=== PATIENT | male | born 1935 | race Two or more races ===

== ENCOUNTER 2020-08-23 21:50 | Inpatient (IN) | payer OTHER ==
[~2020-08-23] VITALS: Ht 177.8 cm; Wt 96.5 kg
[2020-08-23] MEDS ORDERED: NOREPINEPHRINE 8 MG/250ML KIT 250 ML IV ONE (22:16)
[2020-08-23] MEDS: NOREPINEPHRINE 8 MG/250ML KIT 250 ML IV SCH (22:29)
[2020-08-23 22:40] LABS: Basophils # (auto) 0.1 10 ^3/uL (0-0.2); Basophils % (auto) 0.6 % (0.0-2.0); Eosinophils # (auto) 0 10 ^3/uL (0-0.8); Eosinophils % (auto) 0.2 % (0.0-7.0); Hematocrit 28.1 % (41.0-53.0); Hemoglobin 9.2 g/dL (13.5-17.5); Lymphocytes # (auto) 1.8 10 ^3/uL (0.4-5.4); Lymphocytes % (auto) 13.4 % (10.0-50.0); Mean Corpuscular Hemoglobin 31.5 pg (28.0-32.0); Mean Corpuscular Hgb Conc. 32.9 g/dL (32.0-36.0); Mean Corpuscular Volume 95.8 fL (80.0-100.0); Monocytes # (auto) 0.6 10 ^3/uL (0-1.3); Monocytes % (auto) 4.9 % (0.0-12.0); Neutrophils # (auto) 10.7 10 ^3/uL (1.6-8.6); Neutrophils % (auto) 80.9 % (37.0-80.0); Red Blood Cells 2.93 10^6/uL (4.5-5.90); Red Cell Distribution Width 17.6 % (11.8-14.3); White Blood Cell 13.2 10^3/uL (4.4-10.8)
[2020-08-23 22:57] LABS: Albumin 2.1 g/dL (3.4-5.0); Anion Gap 16 (5-15); Blood Urea Nitrogen 66 mg/dL (7-18); Calcium 8.1 mg/dL (8.5-10.1); Carbon Dioxide 11 mmol/L (21-32); Chloride 115 mmol/L (98-107); Glucose 233 mg/dL (74-106); Magnesium 2.2 mg/dL (1.6-2.6); Potassium 4.6 mmol/L (3.5-5.1); Sodium 142 mmol/L (136-145)
[2020-08-23 23:01] LABS: Lactic Acid w/Reflex 8.3 mmol/L (0.4-2.0)
[2020-08-23 23:03] LABS: Alanine Aminotransferase 25 U/L (16-61); Alkaline Phosphatase 195 U/L (45-117); Aspartate Aminotransferase 28 U/L (15-37); BUN/Creatinine Ratio 29.9; Bilirubin, Total 0.4 mg/dL (0.2-1.0); GFR African American 37 mL/min; GFR Non-African American 30 mL/min; Total Protein 5.2 g/dL (6.4-8.2)
[2020-08-23 23:13] LABS: INR 3.49 (0.9-1.15); Partial Thromboplastin Time 66.7 sec (23.0-31.2)
[2020-08-24] MEDS ORDERED: PANTOPRAZOLE 40mg/50ML NS AE 50 ML IV ONE ×2 (00:36→03:31)
[2020-08-24] MEDS ORDERED: PANTOPRAZOLE 40 MG/10 ML VIAL INJ IV ONE (00:37)
[2020-08-24] MEDS ORDERED: SUCRALFATE 1 GM TAB PO ONE (02:45)
[2020-08-24] MEDS ORDERED: cefTRIAXone 1GM/50ML D5W 50 ML IV ONE (04:05)
[2020-08-24 05:37] LABS: Hematocrit 36.2 % (41.0-53.0); Hemoglobin 12.1 g/dL (13.5-17.5)
[2020-08-24 05:58] LABS: Hematocrit 36.7 % (41.0-53.0); Hemoglobin 12.3 g/dL (13.5-17.5)
[2020-08-24] MEDS ORDERED: MORPHINE SULF INJ 2 MG/ML SYRINGE 1ML IV PRN (07:00)
[2020-08-24] MEDS ORDERED: DEXTROSE (50%) 50ML SYRG IV PRN (07:00)
[2020-08-24] MEDS ORDERED: NITROGLYCERIN 0.4 MG SL TAB SL PRN (07:00)
[2020-08-24] MEDS ORDERED: ALBUMIN 5% 250 ML IV ONE (07:00)
[2020-08-24] MEDS ORDERED: ONDANSETRON HCL 4 MG/2 ML VIAL IV PRN (07:00)
[2020-08-24] MEDS: SODIUM CHLORIDE 0.9% 1,000 ML IV SCH ×2 (09:08→18:46)
[2020-08-24] MEDS: cefTRIAXone 1GM/50ML D5W 50 ML IV SCH (09:11)
[2020-08-24] MEDS: PANTOPRAZOLE 40mg/50ML NS AE 50 ML IV SCH ×4 (09:11→22:49)
[2020-08-24] MEDS: AZITHROMYCIN 500MG/ 250ML 250 ML IV SCH (10:44)
[2020-08-24 10:49] LABS: Urine Bacteria FEW /hpf (None Seen); Urine Blood 3+ /uL (Negative); Urine Hyaline Cast MANY /lpf (0 - 2); Urine Mucus FEW (None Seen); Urine Specific Gravity 1.018 (1.001-1.035); Urine WBC 12 /hpf (0 - 3)
[2020-08-24] MEDS: ACCU-CHEK COMFORT CURVE STRIP VI SCH ×2 (12:13→18:14)
[2020-08-24] MEDS: InsuLIN REG 1unit/0.01ml Soln (100units/ml) SC SCH ×2 (12:22→18:14)
[2020-08-24 12:49] VITALS: BP 108/56
[2020-08-24 13:12] VITALS: BP 100/52
[2020-08-24 13:30] VITALS: BP 97/57
[2020-08-24 15:00] VITALS: BP 96/51
[2020-08-24] MEDS: FUROSEMIDE 20 MG/2 ML VIAL IV SCH (17:53)
[2020-08-24] MEDS: NOREPINEPHRINE 8 MG/250ML KIT 250 ML IV SCH (22:41)
[2020-08-25] VITALS (75 sets, daily range): BP systolic 94–131; BP diastolic 36–71
[2020-08-25] MEDS: ACCU-CHEK COMFORT CURVE STRIP VI SCH ×4 (00:10→18:01)
[2020-08-25] MEDS: InsuLIN REG 1unit/0.01ml Soln (100units/ml) SC SCH ×4 (00:19→18:01)
[2020-08-25] MEDS: PANTOPRAZOLE 40mg/50ML NS AE 50 ML IV SCH ×5 (03:00→23:08)
[2020-08-25] MEDS: FUROSEMIDE 20 MG/2 ML VIAL IV SCH (06:00)
[2020-08-25] MEDS: SODIUM CHLORIDE 0.9% 1,000 ML IV SCH (06:32)
[2020-08-25 08:58] LABS: Basophils # (auto) 0 10 ^3/uL (0-0.2); Basophils % (auto) 0.3 % (0.0-2.0); Eosinophils # (auto) 0 10 ^3/uL (0-0.8); Hematocrit 36.2 % (41.0-53.0); Hemoglobin 12.5 g/dL (13.5-17.5); Lymphocytes # (auto) 1.2 10 ^3/uL (0.4-5.4); Lymphocytes % (auto) 7.6 % (10.0-50.0); Mean Corpuscular Hemoglobin 30.6 pg (28.0-32.0); Mean Corpuscular Hgb Conc. 34.4 g/dL (32.0-36.0); Mean Corpuscular Volume 88.9 fL (80.0-100.0); Monocytes # (auto) 1.3 10 ^3/uL (0-1.3); Monocytes % (auto) 8.3 % (0.0-12.0); Neutrophils # (auto) 13.2 10 ^3/uL (1.6-8.6); Neutrophils % (auto) 83.8 % (37.0-80.0); Red Blood Cells 4.07 10^6/uL (4.5-5.90); White Blood Cell 15.8 10^3/uL (4.4-10.8)
[2020-08-25 09:14] LABS: Albumin 2.6 g/dL (3.4-5.0); Calcium 8.9 mg/dL (8.5-10.1); Potassium 3.5 mmol/L (3.5-5.1)
[2020-08-25] MEDS ORDERED: PHYTONADIONE (VIT K)10 MG/ML 1ML VIAL SUBCUT ONE (09:15)
[2020-08-25 09:17] LABS: BUN/Creatinine Ratio 40.9; Bilirubin, Total 0.5 mg/dL (0.2-1.0); Total Protein 6.1 g/dL (6.4-8.2)
[2020-08-25] MEDS: cefTRIAXone 1GM/50ML D5W 50 ML IV SCH (10:06)
[2020-08-25] MEDS: AZITHROMYCIN 500MG/ 250ML 250 ML IV SCH (10:48)
[2020-08-25] MEDS ORDERED: CLINIMIX PER PHARMACY 0 ML IV SCH (13:15)
[2020-08-25] MEDS: MORPHINE SULF INJ 2 MG/ML SYRINGE 1ML IV PRN (14:01)
[2020-08-25 14:03] LABS: Magnesium 2.3 mg/dL (1.6-2.6); Phosphorus 3.7 mg/dL (2.5-4.90)
[2020-08-25 14:07] LABS: Pre Albumin 7.5 mg/dL (20.0-40.0)
[2020-08-25 14:26] LABS: INR 1.99 (0.9-1.15); Partial Thromboplastin Time 69.5 sec (23.0-31.2)
[2020-08-25] MEDS: ACETYLCYSTEINE 10 %(100MG/ML) SOL 4ML NEB PRN ×2 (15:22→18:21)
[2020-08-25] MEDS: ALBUTEROL SULF 2.5 MG/0.5ML(0.5%) NEB SOLN NEB PRN ×2 (15:22→18:20)
[2020-08-25] MEDS ORDERED: DEXTROSE (50%) 50ML SYRG IV SCH (18:00)
[2020-08-25] MEDS ORDERED: AMINO ACID INFUSION IN D10W 1,000 ML IV NR (20:00)
[2020-08-25] MEDS: NOREPINEPHRINE 8 MG/250ML KIT 250 ML IV SCH (22:15)
[2020-08-25] MEDS ORDERED: ATEN-60 PO (23:07)
[2020-08-25] MEDS ORDERED: DABI75CA5 PO (23:07)
[2020-08-25] MEDS ORDERED: LISI2.5T47 PO (23:07)
[2020-08-26] VITALS (93 sets, daily range): BP systolic 84–123; BP diastolic 40–61
[2020-08-26] MEDS: ACCU-CHEK COMFORT CURVE STRIP VI SCH ×4 (00:08→18:07)
[2020-08-26] MEDS: InsuLIN REG 1unit/0.01ml Soln (100units/ml) SC SCH ×4 (00:08→18:07)
[2020-08-26] MEDS: PANTOPRAZOLE 40mg/50ML NS AE 50 ML IV SCH ×4 (03:40→19:49)
[2020-08-26 04:30] LABS: Basophils # (auto) 0 10 ^3/uL (0-0.2); Basophils % (auto) 0.3 % (0.0-2.0); Eosinophils # (auto) 0 10 ^3/uL (0-0.8); Eosinophils % (auto) 0.1 % (0.0-7.0); Hematocrit 29.7 % (41.0-53.0); Hemoglobin 10.3 g/dL (13.5-17.5); Lymphocytes # (auto) 1.1 10 ^3/uL (0.4-5.4); Lymphocytes % (auto) 10.3 % (10.0-50.0); Mean Corpuscular Hemoglobin 30.7 pg (28.0-32.0); Mean Corpuscular Hgb Conc. 34.6 g/dL (32.0-36.0); Mean Corpuscular Volume 88.7 fL (80.0-100.0); Monocytes # (auto) 0.9 10 ^3/uL (0-1.3); Neutrophils # (auto) 8.7 10 ^3/uL (1.6-8.6); Neutrophils % (auto) 81.3 % (37.0-80.0); Red Blood Cells 3.35 10^6/uL (4.5-5.90); Red Cell Distribution Width 17.7 % (11.8-14.3); White Blood Cell 10.7 10^3/uL (4.4-10.8)
[2020-08-26 04:48] LABS: Albumin 2.2 g/dL (3.4-5.0); Calcium 8.3 mg/dL (8.5-10.1)
[2020-08-26 04:51] LABS: BUN/Creatinine Ratio 42.6; Bilirubin, Total 0.5 mg/dL (0.2-1.0); Phosphorus 2.3 mg/dL (2.5-4.90); Total Protein 5.3 g/dL (6.4-8.2)
[2020-08-26 04:53] LABS: INR 1.72 (0.9-1.15); Partial Thromboplastin Time 61.9 sec (23.0-31.2)
[2020-08-26] MEDS: cefTRIAXone 1GM/50ML D5W 50 ML IV SCH (08:39)
[2020-08-26] MEDS ORDERED: POTASSIUM PHOSPHATE 44 MEQ in D5W 5% 250 ML IV ONE (09:00)
[2020-08-26] MEDS: AZITHROMYCIN 500MG/ 250ML 250 ML IV SCH (09:48)
[2020-08-26] MEDS ORDERED: PHYTONADIONE (VIT K)10 MG/ML 1ML VIAL SUBCUT ONE (10:00)
[2020-08-26] MEDS: ACETYLCYSTEINE 10 %(100MG/ML) SOL 4ML NEB PRN (11:17)
[2020-08-26] MEDS: ALBUTEROL SULF 2.5 MG/0.5ML(0.5%) NEB SOLN NEB PRN (11:17)
[2020-08-26] MEDS: MORPHINE SULF INJ 2 MG/ML SYRINGE 1ML IV PRN ×2 (14:18→20:29)
[2020-08-26] MEDS ORDERED: AMINO ACID INFUSION IN D10W 1,000 ML IV NR (20:00)
[2020-08-27] VITALS (96 sets, daily range): BP systolic 79–129; BP diastolic 34–66
[2020-08-27] MEDS: InsuLIN REG 1unit/0.01ml Soln (100units/ml) SC SCH ×5 (00:01→23:32)
[2020-08-27 04:06] LABS: Basophils # (auto) 0 10 ^3/uL (0-0.2); Basophils % (auto) 0.3 % (0.0-2.0); Eosinophils # (auto) 0 10 ^3/uL (0-0.8); Eosinophils % (auto) 0.2 % (0.0-7.0); Hematocrit 29.2 % (41.0-53.0); Hemoglobin 10.3 g/dL (13.5-17.5); Lymphocytes # (auto) 1.3 10 ^3/uL (0.4-5.4); Lymphocytes % (auto) 11.8 % (10.0-50.0); Mean Corpuscular Hemoglobin 31.3 pg (28.0-32.0); Mean Corpuscular Hgb Conc. 35.4 g/dL (32.0-36.0); Mean Corpuscular Volume 88.3 fL (80.0-100.0); Monocytes # (auto) 0.8 10 ^3/uL (0-1.3); Monocytes % (auto) 7.7 % (0.0-12.0); Neutrophils # (auto) 8.7 10 ^3/uL (1.6-8.6); Nucleated Red Blood Cells % 0.1 %; Red Blood Cells 3.31 10^6/uL (4.5-5.90); Red Cell Distribution Width 17.8 % (11.8-14.3); White Blood Cell 10.8 10^3/uL (4.4-10.8)
[2020-08-27 04:22] LABS: Potassium 3.1 mmol/L (3.5-5.1)
[2020-08-27 04:25] LABS: INR 1.46 (0.9-1.15); Partial Thromboplastin Time 44.2 sec (23.0-31.2)
[2020-08-27 04:40] LABS: BUN/Creatinine Ratio 43.8; Bilirubin, Total 2.1 mg/dL (0.2-1.0); Calcium 8.2 mg/dL (8.5-10.1); Magnesium 1.9 mg/dL (1.6-2.6); Phosphorus 2.1 mg/dL (2.5-4.90); Total Protein 5.2 g/dL (6.4-8.2)
[2020-08-27] MEDS: NOREPINEPHRINE 8 MG/250ML KIT 250 ML IV SCH ×2 (06:12→22:46)
[2020-08-27] MEDS: PANTOPRAZOLE 40mg/50ML NS AE 50 ML IV SCH ×5 (06:12→20:05)
[2020-08-27] MEDS: ACCU-CHEK COMFORT CURVE STRIP VI SCH ×5 (06:13→23:26)
[2020-08-27] MEDS: ACETYLCYSTEINE 10 %(100MG/ML) SOL 4ML NEB PRN (06:35)
[2020-08-27] MEDS: ALBUTEROL SULF 2.5 MG/0.5ML(0.5%) NEB SOLN NEB PRN (06:35)
[2020-08-27] MEDS: cefTRIAXone 1GM/50ML D5W 50 ML IV SCH (08:41)
[2020-08-27] MEDS: POTASSIUM CHL 20MEQ/100ML 100 ML IV SCH ×2 (09:18→10:51)
[2020-08-27] MEDS: AZITHROMYCIN 500MG/ 250ML 250 ML IV SCH (10:30)
[2020-08-27] MEDS ORDERED: LIDOCAINE VISCOUS 2% 15ML UD ONE (10:30)
[2020-08-27] MEDS ORDERED: SODIUM CHLORIDE LOCK 10 ML ONE (10:30)
[2020-08-27] MEDS ORDERED: MIDAZOLAM HCL 5 MG/ML-1ML VIAL ONE (10:30)
[2020-08-27] MEDS ORDERED: fentaNYL CITRATE 100 MCG/2 ML VL ONE (10:31)
[2020-08-27] MEDS ORDERED: diphenhdrAMINE HCL 50 MG/1 ML VL ONE (10:31)
[2020-08-27] MEDS ORDERED: POTASSIUM PHOSPHATE 22 MEQ in SODIUM CHL 0.9% 100 ML IV ONE (10:45)
[2020-08-27] MEDS ORDERED: AMINO ACID INFUSION IN D10W 1,000 ML IV NR (20:00)
[2020-08-28] VITALS (97 sets, daily range): BP systolic 87–128; BP diastolic 42–68
[2020-08-28] MEDS: PANTOPRAZOLE 40mg/50ML NS AE 50 ML IV SCH ×5 (01:36→23:04)
[2020-08-28] MEDS ORDERED: PROPOFOL 0 ML IV ONE (02:34)
[2020-08-28 04:07] LABS: Basophils # (auto) 0 10 ^3/uL (0-0.2); Basophils % (auto) 0.4 % (0.0-2.0); Eosinophils # (auto) 0.1 10 ^3/uL (0-0.8); Eosinophils % (auto) 0.9 % (0.0-7.0); Hematocrit 27.6 % (41.0-53.0); Hemoglobin 9.5 g/dL (13.5-17.5); Lymphocytes # (auto) 1.3 10 ^3/uL (0.4-5.4); Lymphocytes % (auto) 13.9 % (10.0-50.0); Mean Corpuscular Hemoglobin 30.6 pg (28.0-32.0); Mean Corpuscular Hgb Conc. 34.6 g/dL (32.0-36.0); Mean Corpuscular Volume 88.4 fL (80.0-100.0); Monocytes # (auto) 0.7 10 ^3/uL (0-1.3); Monocytes % (auto) 7.3 % (0.0-12.0); Neutrophils # (auto) 7.3 10 ^3/uL (1.6-8.6); Neutrophils % (auto) 77.5 % (37.0-80.0); Red Blood Cells 3.12 10^6/uL (4.5-5.90); White Blood Cell 9.5 10^3/uL (4.4-10.8)
[2020-08-28 04:15] LABS: Calcium 8.2 mg/dL (8.5-10.1); Potassium 3.5 mmol/L (3.5-5.1)
[2020-08-28 04:26] LABS: INR 1.34 (0.9-1.15); Partial Thromboplastin Time 40.8 sec (23.0-31.2)
[2020-08-28 04:31] LABS: BUN/Creatinine Ratio 40.4; Bilirubin, Total 2.1 mg/dL (0.2-1.0); Phosphorus 1.6 mg/dL (2.5-4.90); Total Protein 5.3 g/dL (6.4-8.2)
[2020-08-28] MEDS: InsuLIN REG 1unit/0.01ml Soln (100units/ml) SC SCH ×4 (06:00→23:30)
[2020-08-28] MEDS: ACCU-CHEK COMFORT CURVE STRIP VI SCH ×4 (06:00→23:23)
[2020-08-28] MEDS ORDERED: POTASSIUM PHOSPHATE 44 MEQ in D5W 5% 250 ML IV ONE (09:30)
[2020-08-28] MEDS: cefTRIAXone 1GM/50ML D5W 50 ML IV SCH (09:34)
[2020-08-28] MEDS: AZITHROMYCIN 500MG/ 250ML 250 ML IV SCH (11:15)
[2020-08-28] MEDS: NOREPINEPHRINE 8 MG/250ML KIT 250 ML IV SCH (17:43)
[2020-08-28] MEDS ORDERED: AMINO ACID INFUSION IN D10W 1,000 ML IV NR (20:00)
[2020-08-29] VITALS (49 sets, daily range): BP systolic 87–122; BP diastolic 43–64
[2020-08-29 04:35] LABS: Basophils # (auto) 0 10 ^3/uL (0-0.2); Basophils % (auto) 0.3 % (0.0-2.0); Eosinophils # (auto) 0.2 10 ^3/uL (0-0.8); Eosinophils % (auto) 2.9 % (0.0-7.0); Hemoglobin 8.6 g/dL (13.5-17.5); Lymphocytes # (auto) 1.1 10 ^3/uL (0.4-5.4); Lymphocytes % (auto) 15.2 % (10.0-50.0); Mean Corpuscular Hemoglobin 30.6 pg (28.0-32.0); Mean Corpuscular Hgb Conc. 34.3 g/dL (32.0-36.0); Mean Corpuscular Volume 89.2 fL (80.0-100.0); Monocytes # (auto) 0.5 10 ^3/uL (0-1.3); Monocytes % (auto) 7.8 % (0.0-12.0); Neutrophils # (auto) 5.1 10 ^3/uL (1.6-8.6); Neutrophils % (auto) 73.8 % (37.0-80.0); Red Cell Distribution Width 17.8 % (11.8-14.3); White Blood Cell 6.9 10^3/uL (4.4-10.8)
[2020-08-29 04:58] LABS: Potassium 3.7 mmol/L (3.5-5.1)
[2020-08-29 05:18] LABS: Albumin 1.8 g/dL (3.4-5.0); BUN/Creatinine Ratio 43.5; Bilirubin, Total 0.8 mg/dL (0.2-1.0); Calcium 7.5 mg/dL (8.5-10.1); Magnesium 1.8 mg/dL (1.6-2.6); Total Protein 4.8 g/dL (6.4-8.2)
[2020-08-29] MEDS: PANTOPRAZOLE 40mg/50ML NS AE 50 ML IV SCH ×5 (06:24→21:50)
[2020-08-29] MEDS: ACCU-CHEK COMFORT CURVE STRIP VI SCH ×4 (06:24→23:44)
[2020-08-29] MEDS: InsuLIN REG 1unit/0.01ml Soln (100units/ml) SC SCH ×4 (06:29→23:45)
[2020-08-29] MEDS: cefTRIAXone 1GM/50ML D5W 50 ML IV SCH (08:50)
[2020-08-29] MEDS: AZITHROMYCIN 500MG/ 250ML 250 ML IV SCH (10:09)
[2020-08-29] MEDS ORDERED: POTASSIUM PHOSPHATE 44 MEQ in D5W 5% 250 ML IV ONE (13:00)
[2020-08-29] MEDS ORDERED: AMINO ACID INFUSION IN D10W 1,000 ML IV NR (20:00)
[2020-08-30] MEDS: PANTOPRAZOLE 40mg/50ML NS AE 50 ML IV SCH ×5 (03:08→23:35)
[2020-08-30 05:15] VITALS: BP 113/58
[2020-08-30] MEDS: ACCU-CHEK COMFORT CURVE STRIP VI SCH ×4 (06:00→23:29)
[2020-08-30] MEDS: InsuLIN REG 1unit/0.01ml Soln (100units/ml) SC SCH ×4 (06:10→23:30)
[2020-08-30 06:15] LABS: Basophils # (auto) 0 10 ^3/uL (0-0.2); Basophils % (auto) 0.2 % (0.0-2.0); Eosinophils # (auto) 0.1 10 ^3/uL (0-0.8); Eosinophils % (auto) 1.7 % (0.0-7.0); Hematocrit 26.2 % (41.0-53.0); Hemoglobin 9.1 g/dL (13.5-17.5); Lymphocytes # (auto) 1.1 10 ^3/uL (0.4-5.4); Lymphocytes % (auto) 14.2 % (10.0-50.0); Mean Corpuscular Hemoglobin 30.9 pg (28.0-32.0); Mean Corpuscular Hgb Conc. 34.6 g/dL (32.0-36.0); Mean Corpuscular Volume 89.4 fL (80.0-100.0); Monocytes # (auto) 0.6 10 ^3/uL (0-1.3); Monocytes % (auto) 7.3 % (0.0-12.0); Neutrophils # (auto) 6.1 10 ^3/uL (1.6-8.6); Neutrophils % (auto) 76.6 % (37.0-80.0); Red Blood Cells 2.93 10^6/uL (4.5-5.90); Red Cell Distribution Width 17.6 % (11.8-14.3)
[2020-08-30] MEDS ORDERED: ALPRAZolam 0.25 MG TAB PO PRN (06:15)
[2020-08-30 06:39] LABS: Calcium 7.7 mg/dL (8.5-10.1); Magnesium 1.6 mg/dL (1.6-2.6); Potassium 4.3 mmol/L (3.5-5.1)
[2020-08-30 06:57] LABS: BUN/Creatinine Ratio 36.5; Bilirubin, Total 0.7 mg/dL (0.2-1.0); Phosphorus 2.3 mg/dL (2.5-4.90); Total Protein 5.2 g/dL (6.4-8.2)
[2020-08-30 09:00] VITALS: BP 107/61
[2020-08-30] MEDS: cefTRIAXone 1GM/50ML D5W 50 ML IV SCH (09:37)
[2020-08-30] MEDS ORDERED: SODIUM PHOSPHATES 24 MEQ in SODIUM CHL 0.9% 100 ML IV ONE (10:00)
[2020-08-30] MEDS: AZITHROMYCIN 500MG/ 250ML 250 ML IV SCH (10:38)
[2020-08-30 13:00] VITALS: BP 107/56
[2020-08-30 17:00] VITALS: BP 112/52
[2020-08-30] MEDS ORDERED: AMINO ACID INFUSION IN D10W 1,000 ML IV NR (20:00)
[2020-08-30 22:00] VITALS: BP 130/58
[2020-08-31] MEDS: PANTOPRAZOLE 40mg/50ML NS AE 50 ML IV SCH ×5 (03:55→23:57)
[2020-08-31 05:00] VITALS: BP 126/53
[2020-08-31] MEDS: ACCU-CHEK COMFORT CURVE STRIP VI SCH ×3 (05:34→18:16)
[2020-08-31] MEDS: InsuLIN REG 1unit/0.01ml Soln (100units/ml) SC SCH ×3 (06:03→18:17)
[2020-08-31 06:25] LABS: Albumin 1.9 g/dL (3.4-5.0); Calcium 7.9 mg/dL (8.5-10.1); Magnesium 1.7 mg/dL (1.6-2.6); Potassium 4.1 mmol/L (3.5-5.1)
[2020-08-31 06:29] LABS: BUN/Creatinine Ratio 33.9; Bilirubin, Total 0.5 mg/dL (0.2-1.0); Phosphorus 2.5 mg/dL (2.5-4.90)
[2020-08-31 09:00] VITALS: BP 122/67
[2020-08-31 09:09] LABS: Basophils # (auto) 0.1 10 ^3/uL (0-0.2); Basophils % (auto) 0.7 % (0.0-2.0); Eosinophils # (auto) 0.1 10 ^3/uL (0-0.8); Eosinophils % (auto) 1.6 % (0.0-7.0); Hematocrit 27.3 % (41.0-53.0); Hemoglobin 9.2 g/dL (13.5-17.5); Lymphocytes # (auto) 0.8 10 ^3/uL (0.4-5.4); Lymphocytes % (auto) 10.7 % (10.0-50.0); Mean Corpuscular Hemoglobin 30.5 pg (28.0-32.0); Mean Corpuscular Hgb Conc. 33.6 g/dL (32.0-36.0); Mean Corpuscular Volume 90.6 fL (80.0-100.0); Monocytes # (auto) 0.5 10 ^3/uL (0-1.3); Monocytes % (auto) 6.9 % (0.0-12.0); Neutrophils # (auto) 6.1 10 ^3/uL (1.6-8.6); Neutrophils % (auto) 80.1 % (37.0-80.0); Red Blood Cells 3.01 10^6/uL (4.5-5.90); White Blood Cell 7.6 10^3/uL (4.4-10.8)
[2020-08-31 09:25] LABS: INR 1.16 (0.9-1.15)
[2020-08-31 09:27] LABS: BUN/Creatinine Ratio 32.4; Calcium 8.1 mg/dL (8.5-10.1); Potassium 3.7 mmol/L (3.5-5.1)
[2020-08-31] MEDS: cefTRIAXone 1GM/50ML D5W 50 ML IV SCH (09:36)
[2020-08-31] MEDS: AZITHROMYCIN 500MG/ 250ML 250 ML IV SCH (09:37)
[2020-08-31 10:33] VITALS: BP 122/67
[2020-08-31] MEDS ORDERED: MAGNESIUM SULFATE 1GM/100ML 100 ML IV ONE (11:45)
[2020-08-31 13:00] VITALS: BP 121/56
[2020-08-31 17:00] VITALS: BP 103/49
[2020-08-31] MEDS ORDERED: AMINO ACID INFUSION IN D10W 1,000 ML IV NR (20:00)
[2020-08-31 22:00] VITALS: BP 135/69
[2020-09-01] VITALS (12 sets, daily range): BP systolic 109–154; BP diastolic 52–87
[2020-09-01] MEDS: InsuLIN REG 1unit/0.01ml Soln (100units/ml) SC SCH ×4 (00:45→17:37)
[2020-09-01] MEDS: ACCU-CHEK COMFORT CURVE STRIP VI SCH ×4 (00:45→17:36)
[2020-09-01 06:13] LABS: Magnesium 1.8 mg/dL (1.6-2.6); Potassium 3.8 mmol/L (3.5-5.1)
[2020-09-01 06:18] LABS: BUN/Creatinine Ratio 32.8; Bilirubin, Total 0.6 mg/dL (0.2-1.0); Phosphorus 1.9 mg/dL (2.5-4.90)
[2020-09-01] MEDS: PANTOPRAZOLE 40mg/50ML NS AE 50 ML IV SCH ×4 (06:22→20:14)
[2020-09-01] MEDS: cefTRIAXone 1GM/50ML D5W 50 ML IV SCH (08:31)
[2020-09-01] MEDS ORDERED: LIDOCAINE 2%HCL (LOCAL ANESTH.) INJ 20ML MDV ONE (08:54)
[2020-09-01] MEDS: AZITHROMYCIN 500MG/ 250ML 250 ML IV SCH (10:26)
[2020-09-01] MEDS: MORPHINE SULF INJ 2 MG/ML SYRINGE 1ML IV PRN ×2 (10:56→21:49)
[2020-09-01] MEDS ORDERED: fentaNYL CITRATE 100 MCG/2 ML VL ONE (11:36)
[2020-09-01] MEDS ORDERED: MIDAZOLAM HCL 1MG/1ML-2 ML VIAL ONE (11:36)
[2020-09-01] MEDS ORDERED: POTASSIUM PHOSPHATE 44 MEQ in D5W 5% 250 ML IV ONE (12:00)
[2020-09-01] MEDS ORDERED: AMINO ACID INFUSION IN D10W 1,000 ML IV NR (20:00)
[2020-09-02] MEDS: ACCU-CHEK COMFORT CURVE STRIP VI SCH ×4 (00:32→17:35)
[2020-09-02] MEDS: InsuLIN REG 1unit/0.01ml Soln (100units/ml) SC SCH ×4 (00:34→17:37)
[2020-09-02] MEDS: PANTOPRAZOLE 40mg/50ML NS AE 50 ML IV SCH ×5 (00:47→20:32)
[2020-09-02 05:00] VITALS: BP 116/62
[2020-09-02 05:41] LABS: Albumin 1.9 g/dL (3.4-5.0); Calcium 7.9 mg/dL (8.5-10.1); Magnesium 1.8 mg/dL (1.6-2.6)
[2020-09-02 05:47] LABS: BUN/Creatinine Ratio 29.9; Bilirubin, Total 0.4 mg/dL (0.2-1.0); Phosphorus 2.9 mg/dL (2.5-4.90); Pre Albumin 7.5 mg/dL (20.0-40.0)
[2020-09-02 09:00] VITALS: BP 123/69
[2020-09-02 12:19] LABS: INR 1.18 (0.9-1.15); Partial Thromboplastin Time 33.8 sec (23.0-31.2)
[2020-09-02 13:00] VITALS: BP 106/57
[2020-09-02 17:00] VITALS: BP 115/68
[2020-09-02] MEDS ORDERED: AMINO ACID INFUSION IN D10W 1,000 ML IV NR (20:00)
[2020-09-02] MEDS: ALPRAZolam 0.5 MG TAB PO SCH (20:32)
[2020-09-02 22:00] VITALS: BP 130/66
[2020-09-03] VITALS (21 sets, daily range): BP systolic 101–132; BP diastolic 42–82
[2020-09-03] MEDS: ACCU-CHEK COMFORT CURVE STRIP VI SCH ×4 (00:05→18:15)
[2020-09-03] MEDS: InsuLIN REG 1unit/0.01ml Soln (100units/ml) SC SCH ×4 (00:06→18:16)
[2020-09-03] MEDS: PANTOPRAZOLE 40mg/50ML NS AE 50 ML IV SCH ×5 (02:43→21:42)
[2020-09-03] MEDS: ALBUTEROL SULF 2.5 MG/0.5ML(0.5%) NEB SOLN NEB PRN (05:44)
[2020-09-03] MEDS: ACETYLCYSTEINE 10 %(100MG/ML) SOL 4ML NEB PRN (05:48)
[2020-09-03 06:45] LABS: Albumin 1.9 g/dL (3.4-5.0); Bilirubin, Total 0.5 mg/dL (0.2-1.0); Calcium 7.8 mg/dL (8.5-10.1); Magnesium 1.9 mg/dL (1.6-2.6); Total Protein 5.1 g/dL (6.4-8.2)
[2020-09-03] MEDS: ALPRAZolam 0.5 MG TAB PO SCH ×2 (09:44→21:41)
[2020-09-03] MEDS ORDERED: SODIUM PHOSPHATES 40 MEQ in D5W 5% 250 ML IV ONE (12:00)
[2020-09-03] MEDS: AMINO ACID INFUSION IN D10W 1,000 ML IV NR (19:46)
[2020-09-04] MEDS: ACCU-CHEK COMFORT CURVE STRIP VI SCH ×4 (00:06→18:25)
[2020-09-04] MEDS: InsuLIN REG 1unit/0.01ml Soln (100units/ml) SC SCH ×4 (00:08→18:26)
[2020-09-04] MEDS: PANTOPRAZOLE 40mg/50ML NS AE 50 ML IV SCH ×5 (02:37→23:23)
[2020-09-04 05:00] VITALS: BP_SYST 108; BP_SYST 96; BP_DIAS 49; BP_DIAS 61
[2020-09-04 07:04] LABS: Albumin 1.7 g/dL (3.4-5.0); Calcium 7.6 mg/dL (8.5-10.1); Magnesium 1.7 mg/dL (1.6-2.6); Potassium 3.6 mmol/L (3.5-5.1)
[2020-09-04 07:08] LABS: BUN/Creatinine Ratio 31.5; Bilirubin, Total 0.4 mg/dL (0.2-1.0); Phosphorus 2.5 mg/dL (2.5-4.90); Total Protein 4.5 g/dL (6.4-8.2)
[2020-09-04 09:00] VITALS: BP_SYST 104; BP_SYST 96; BP_DIAS 49; BP_DIAS 52
[2020-09-04] MEDS: ALPRAZolam 0.5 MG TAB PO SCH ×2 (09:40→22:27)
[2020-09-04] MEDS ORDERED: MAGNESIUM SULFATE 1GM/100ML 100 ML IV ONE (10:00)
[2020-09-04] MEDS ORDERED: POTASSIUM PHOSP 22MEQ(15MMOLE) in NS 100 ML IV ONE (11:00)
[2020-09-04 13:00] VITALS: BP 103/56
[2020-09-04] MEDS ORDERED: METOPROLOL TARTRATE 1MG/1ML-5ML VIAL IV ONE (13:45)
[2020-09-04 17:00] VITALS: BP 92/46
[2020-09-04] MEDS: AMINO ACID INFUSION IN D10W 1,000 ML IV NR (19:49)
[2020-09-04] MEDS ORDERED: AMINO ACID INFUSION IN D10W 1,000 ML IV NR (20:00)
[2020-09-04 22:01] VITALS: BP 109/49
[2020-09-05] MEDS: PANTOPRAZOLE 40mg/50ML NS AE 50 ML IV SCH ×4 (04:02→19:03)
[2020-09-05 05:50] VITALS: BP 104/68
[2020-09-05 06:20] LABS: Basophils # (auto) 0 10 ^3/uL (0-0.2); Basophils % (auto) 0.5 % (0.0-2.0); Eosinophils # (auto) 0.1 10 ^3/uL (0-0.8); Eosinophils % (auto) 1.7 % (0.0-7.0); Hematocrit 24.8 % (41.0-53.0); Hemoglobin 8.7 g/dL (13.5-17.5); Lymphocytes % (auto) 11.3 % (10.0-50.0); Mean Corpuscular Hemoglobin 32.4 pg (28.0-32.0); Mean Corpuscular Hgb Conc. 35.1 g/dL (32.0-36.0); Mean Corpuscular Volume 92.5 fL (80.0-100.0); Monocytes # (auto) 0.7 10 ^3/uL (0-1.3); Neutrophils # (auto) 6.8 10 ^3/uL (1.6-8.6); Neutrophils % (auto) 78.5 % (37.0-80.0); Red Blood Cells 2.68 10^6/uL (4.5-5.90); Red Cell Distribution Width 17.9 % (11.8-14.3); White Blood Cell 8.7 10^3/uL (4.4-10.8)
[2020-09-05] MEDS: ACCU-CHEK COMFORT CURVE STRIP VI SCH ×4 (06:27→18:34)
[2020-09-05] MEDS: InsuLIN REG 1unit/0.01ml Soln (100units/ml) SC SCH ×4 (06:29→18:40)
[2020-09-05 06:47] LABS: Potassium 4.1 mmol/L (3.5-5.1)
[2020-09-05 06:56] LABS: Albumin 1.6 g/dL (3.4-5.0); BUN/Creatinine Ratio 29.5; Bilirubin, Total 0.4 mg/dL (0.2-1.0); Calcium 7.7 mg/dL (8.5-10.1); Phosphorus 2.2 mg/dL (2.5-4.90); Total Protein 4.7 g/dL (6.4-8.2)
[2020-09-05 08:00] VITALS: BP 93/43
[2020-09-05] MEDS: Glucerna Carbsteady SHAKE Vanilla 8oz PO SCH ×3 (08:58→18:33)
[2020-09-05 09:00] VITALS: BP 93/43
[2020-09-05] MEDS ORDERED: SODIUM PHOSP 40 MEQ in D5W 5% 250 ML IV ONE (09:30)
[2020-09-05] MEDS: METOPROLOL TARTRATE 25 MG TAB PO SCH ×2 (10:00→22:27)
[2020-09-05] MEDS: ALPRAZolam 0.5 MG TAB PO SCH ×2 (10:52→21:21)
[2020-09-05 13:00] VITALS: BP 111/58
[2020-09-05 17:00] VITALS: BP 103/50
[2020-09-05] MEDS ORDERED: AMINO ACID INFUSION IN D10W 1,000 ML IV NR (20:00)
[2020-09-05 22:00] VITALS: BP 109/54
[2020-09-06] MEDS ORDERED: PANTOPRAZOLE 40mg/50ML NS AE 100 ML IV ONE (00:22)
[2020-09-06] MEDS: PANTOPRAZOLE 40mg/50ML NS AE 50 ML IV SCH ×5 (00:45→20:47)
[2020-09-06] MEDS: ACCU-CHEK COMFORT CURVE STRIP VI SCH ×5 (00:46→23:16)
[2020-09-06] MEDS: InsuLIN REG 1unit/0.01ml Soln (100units/ml) SC SCH ×4 (00:46→17:26)
[2020-09-06 03:48] VITALS: BP 103/55
[2020-09-06 05:00] VITALS: BP 102/55
[2020-09-06 05:35] LABS: Potassium 3.6 mmol/L (3.5-5.1)
[2020-09-06 05:45] LABS: Albumin 1.6 g/dL (3.4-5.0); Bilirubin, Total 0.8 mg/dL (0.2-1.0); Calcium 7.5 mg/dL (8.5-10.1); Phosphorus 2.8 mg/dL (2.5-4.90); Total Protein 4.8 g/dL (6.4-8.2)
[2020-09-06] MEDS: Glucerna Carbsteady SHAKE Vanilla 8oz PO SCH ×3 (07:54→17:30)
[2020-09-06 09:00] VITALS: BP 94/49
[2020-09-06] MEDS: ALPRAZolam 0.5 MG TAB PO SCH ×2 (09:30→23:13)
[2020-09-06] MEDS: METOPROLOL TARTRATE 25 MG TAB PO SCH ×2 (09:30→23:10)
[2020-09-06 13:00] VITALS: BP 103/54
[2020-09-06 16:56] VITALS: BP 94/59
[2020-09-06] MEDS ORDERED: METOPROLOL TARTRATE 1MG/1ML-5ML VIAL IV ONE (18:15)
[2020-09-06] MEDS ORDERED: AMINO ACID INFUSION IN D10W 1,000 ML IV NR (20:00)
[2020-09-06 23:42] VITALS: BP 93/59
[2020-09-07] MEDS: PANTOPRAZOLE 40mg/50ML NS AE 50 ML IV SCH ×5 (02:00→22:38)
[2020-09-07 05:34] VITALS: BP 93/47
[2020-09-07] MEDS: ACCU-CHEK COMFORT CURVE STRIP VI SCH ×4 (06:40→23:00)
[2020-09-07] MEDS: InsuLIN REG 1unit/0.01ml Soln (100units/ml) SC SCH ×5 (07:02→23:02)
[2020-09-07 07:32] LABS: Potassium 3.9 mmol/L (3.5-5.1)
[2020-09-07 07:39] LABS: Albumin 1.7 g/dL (3.4-5.0); BUN/Creatinine Ratio 29.5; Bilirubin, Total 0.5 mg/dL (0.2-1.0); Calcium 7.8 mg/dL (8.5-10.1); Phosphorus 2.2 mg/dL (2.5-4.90); Total Protein 4.9 g/dL (6.4-8.2)
[2020-09-07] MEDS: Glucerna Carbsteady SHAKE Vanilla 8oz PO SCH ×3 (08:00→17:22)
[2020-09-07 09:00] VITALS: BP 95/50
[2020-09-07] MEDS: ALPRAZolam 0.5 MG TAB PO SCH ×2 (09:45→23:00)
[2020-09-07] MEDS: METOPROLOL TARTRATE 25 MG TAB PO SCH ×2 (10:00→23:01)
[2020-09-07 13:00] VITALS: BP 99/69
[2020-09-07] MEDS ORDERED: SODIUM PHOSP 40 MEQ in D5W 5% 250 ML IV ONE (13:00)
[2020-09-07] MEDS ORDERED: RITUXIMAB 375 MG IV SCH (15:30)
[2020-09-07] MEDS ORDERED: BENDAMUSTINE IV SCH (15:30)
[2020-09-07] MEDS ORDERED: FAMOTIDINE 20 MG TAB PO ONE (15:30)
[2020-09-07] MEDS ORDERED: ACETAMINOPHEN 325 MG TAB PO ONE (15:30)
[2020-09-07] MEDS ORDERED: diphenhdrAMINE HCL 50 MG/1 ML VL IV ONE (15:30)
[2020-09-07 17:00] VITALS: BP 93/48
[2020-09-07 20:00] VITALS: BP 91/49
[2020-09-07] MEDS ORDERED: AMINO ACID INFUSION IN D10W 1,000 ML IV NR (20:00)
[2020-09-08] MEDS: PANTOPRAZOLE 40mg/50ML NS AE 50 ML IV SCH ×5 (02:30→21:47)
[2020-09-08 05:00] VITALS: BP 103/54
[2020-09-08 06:22] LABS: Potassium 4.1 mmol/L (3.5-5.1)
[2020-09-08 06:37] LABS: Albumin 1.7 g/dL (3.4-5.0); BUN/Creatinine Ratio 29.5; Bilirubin, Total 0.4 mg/dL (0.2-1.0); Calcium 8.1 mg/dL (8.5-10.1); Total Protein 5.1 g/dL (6.4-8.2)
[2020-09-08] MEDS: ACCU-CHEK COMFORT CURVE STRIP VI SCH ×4 (07:07→23:31)
[2020-09-08] MEDS: InsuLIN REG 1unit/0.01ml Soln (100units/ml) SC SCH ×4 (07:07→23:35)
[2020-09-08 08:00] VITALS: BP 97/53
[2020-09-08] MEDS: Glucerna Carbsteady SHAKE Vanilla 8oz PO SCH ×3 (08:00→18:46)
[2020-09-08 09:00] VITALS: BP 97/53
[2020-09-08] MEDS ORDERED: TPN PER PHARMACY 0 ML IV SCH (09:45)
[2020-09-08] MEDS: ALPRAZolam 0.5 MG TAB PO SCH ×2 (10:00→21:48)
[2020-09-08] MEDS: METOPROLOL TARTRATE 25 MG TAB PO SCH ×2 (10:00→21:47)
[2020-09-08] MEDS ORDERED: ceFAZolin 1GM/50ML 100 ML IV ONE (11:07)
[2020-09-08] MEDS ORDERED: ceFAZolin 1GM VL ONE (11:59)
[2020-09-08] MEDS ORDERED: LIDOCAINE W/ EPINEPHRINE 1% 20ML VIAL ONE (11:59)
[2020-09-08] MEDS ORDERED: HEPARIN SODIUM (PORCINE) 5000 UNITS/ML 1ML VIAL ONE (12:00)
[2020-09-08] MEDS ORDERED: HEPARIN 1,000 UNITS/ml 1ML VIAL ONE (12:00)
[2020-09-08] MEDS ORDERED: fentaNYL CITRATE 100 MCG/2 ML VL ONE (12:02)
[2020-09-08] MEDS ORDERED: MIDAZOLAM HCL 1MG/1ML-2 ML VIAL ONE (12:02)
[2020-09-08] MEDS ORDERED: ONDANSETRON HCL 4 MG/2 ML VIAL IV PRN (12:15)
[2020-09-08] MEDS ORDERED: LABETALOL HCL 5 MG/ML 4ML SYRINGE IV PRN (12:15)
[2020-09-08] MEDS ORDERED: ePHEDrine SULFATE 50 MG/ML AMP IV PRN (12:15)
[2020-09-08] MEDS ORDERED: MORPHINE SULFATE 4 MG/ML SYR/VIAL IV PRN (12:15)
[2020-09-08] MEDS ORDERED: HYDROmorphone HCL 2 MG/ML VL IV PRN (12:15)
[2020-09-08] MEDS ORDERED: MIDAZOLAM HCL 1MG/1ML-2 ML VIAL IV PRN (12:15)
[2020-09-08] MEDS ORDERED: DexAMETHasone SOD PHOS 10MG/1ML VIAL INJ ONE (12:21)
[2020-09-08] MEDS ORDERED: PROPOFOL 10 MG/ML 20 ML IV ONE (12:21)
[2020-09-08 17:00] VITALS: BP 93/60
[2020-09-08] MEDS ORDERED: PPN PER PHARMACY IV NR ×8 (20:00)
[2020-09-08 21:52] VITALS: BP 96/62
[2020-09-09] MEDS: PANTOPRAZOLE 40mg/50ML NS AE 50 ML IV SCH ×4 (03:06→19:32)
[2020-09-09 05:12] VITALS: BP 95/50
[2020-09-09] MEDS: ACCU-CHEK COMFORT CURVE STRIP VI SCH ×4 (05:32→23:53)
[2020-09-09] MEDS: InsuLIN REG 1unit/0.01ml Soln (100units/ml) SC SCH ×4 (05:40→23:52)
[2020-09-09 06:36] LABS: Potassium 4.2 mmol/L (3.5-5.1)
[2020-09-09 07:18] LABS: Albumin 1.7 g/dL (3.4-5.0); Bilirubin, Total 0.3 mg/dL (0.2-1.0); Magnesium 2.1 mg/dL (1.6-2.6); Pre Albumin 3.8 mg/dL (20.0-40.0); Total Protein 4.9 g/dL (6.4-8.2)
[2020-09-09 08:00] VITALS: BP 110/65
[2020-09-09] MEDS: Glucerna Carbsteady SHAKE Vanilla 8oz PO SCH ×3 (08:00→18:00)
[2020-09-09] MEDS: METOPROLOL TARTRATE 25 MG TAB PO SCH ×2 (09:43→20:55)
[2020-09-09 09:45] LABS: Hepatitis B Surface Antibody Negative
[2020-09-09] MEDS: ALPRAZolam 0.5 MG TAB PO SCH ×2 (09:46→20:55)
[2020-09-09 13:00] VITALS: BP 101/56
[2020-09-09] MEDS ORDERED: BENDAMUSTINE HCL IV ONE (14:30)
[2020-09-09] MEDS ORDERED: SODIUM CHL 0.9% IV ONE ×2 (14:30→15:30)
[2020-09-09 14:45] LABS: Hepatitis B Surface Antigen Negative (Negative); Hepatitis C Antibody Negative (Negative)
[2020-09-09] MEDS ORDERED: FAMOTIDINE 20 MG TAB PO ONE (15:00)
[2020-09-09] MEDS ORDERED: ACETAMINOPHEN 325 MG TAB PO ONE (15:00)
[2020-09-09] MEDS ORDERED: diphenhdrAMINE HCL 50 MG/1 ML VL IV ONE (15:00)
[2020-09-09] MEDS ORDERED: RITUXIMAB IV ONE (15:30)
[2020-09-09 16:45] VITALS: BP 102/57
[2020-09-09] MEDS ORDERED: TPN PER PHARMACY IV NR ×9 (20:00)
[2020-09-09 22:00] VITALS: BP 94/50
[2020-09-10] VITALS (7 sets, daily range): BP systolic 93–126; BP diastolic 43–66
[2020-09-10] MEDS: PANTOPRAZOLE 40mg/50ML NS AE 50 ML IV SCH ×5 (00:04→21:35)
[2020-09-10] MEDS: InsuLIN REG 1unit/0.01ml Soln (100units/ml) SC SCH ×3 (06:07→17:57)
[2020-09-10] MEDS: ACCU-CHEK COMFORT CURVE STRIP VI SCH ×3 (06:08→17:56)
[2020-09-10] MEDS: HYDROcodone-ACET 5/325MG TAB PO PRN ×3 (06:38→21:36)
[2020-09-10 06:57] LABS: Basophils # (auto) 0 10 ^3/uL (0-0.2); Basophils % (auto) 0.3 % (0.0-2.0); Eosinophils # (auto) 0 10 ^3/uL (0-0.8); Eosinophils % (auto) 0.2 % (0.0-7.0); Hematocrit 28.4 % (41.0-53.0); Hemoglobin 9.6 g/dL (13.5-17.5); Lymphocytes # (auto) 0.7 10 ^3/uL (0.4-5.4); Lymphocytes % (auto) 8.4 % (10.0-50.0); Mean Corpuscular Hemoglobin 30.6 pg (28.0-32.0); Mean Corpuscular Hgb Conc. 33.9 g/dL (32.0-36.0); Mean Corpuscular Volume 90.4 fL (80.0-100.0); Monocytes # (auto) 0.3 10 ^3/uL (0-1.3); Monocytes % (auto) 3.1 % (0.0-12.0); Neutrophils # (auto) 7.5 10 ^3/uL (1.6-8.6); Red Blood Cells 3.15 10^6/uL (4.5-5.90); Red Cell Distribution Width 17.9 % (11.8-14.3); White Blood Cell 8.6 10^3/uL (4.4-10.8)
[2020-09-10 07:12] LABS: Potassium 3.7 mmol/L (3.5-5.1)
[2020-09-10 07:20] LABS: Albumin 1.8 g/dL (3.4-5.0); BUN/Creatinine Ratio 46.3; Bilirubin, Total 0.3 mg/dL (0.2-1.0); Calcium 7.9 mg/dL (8.5-10.1); Magnesium 2.2 mg/dL (1.6-2.6); Phosphorus 2.4 mg/dL (2.5-4.90); Total Protein 5.2 g/dL (6.4-8.2)
[2020-09-10] MEDS: Glucerna Carbsteady SHAKE Vanilla 8oz PO SCH ×3 (08:00→18:41)
[2020-09-10] MEDS: ALPRAZolam 0.5 MG TAB PO SCH (09:46)
[2020-09-10] MEDS: METOPROLOL TARTRATE 25 MG TAB PO SCH ×2 (09:46→21:36)
[2020-09-10] MEDS ORDERED: ALPRAZolam 0.5 MG TAB PO PRN (10:45)
[2020-09-10] MEDS ORDERED: POTASSIUM PHOSPHATE 11 MEQ in SODIUM CHL 0.9% 100 ML IV ONE (12:00)
[2020-09-10] MEDS ORDERED: SODIUM CHL 0.9% IV ONE (15:00)
[2020-09-10] MEDS ORDERED: BENDAMUSTINE HCL IV ONE (15:00)
[2020-09-10] MEDS ORDERED: TPN PER PHARMACY IV NR ×10 (20:00)
== END 2020-09-10 22:46 | disposition short-term general hospital (02) | DRG 853 ==
LOC: EDBD 21:50 → ER 21:57 → TELE 08-24 06:49 → ICU WEST 08-25 03:17 → TELE-WESTW 08-29 16:14
PROVIDERS: ADMIT Nurse Practitioner; ATTEND Family Medicine
PROC: 30230N1 Transfusion of Nonautologous Red Blood Cells into Peripheral Vein, Open Approach (ICD-10-PCS; principal; 2020-08-24)
PROC: 30233K1 Transfusion of Nonautologous Frozen Plasma into Peripheral Vein, Percutaneous Approach (ICD-10-PCS; 2020-08-24)
PROC: 05H433Z Insertion of Infusion Device into Left Innominate Vein, Percutaneous Approach (ICD-10-PCS; 2020-08-24)
PROC: 0DB68ZX Excision of Stomach, Via Natural or Artificial Opening Endoscopic, Diagnostic (ICD-10-PCS; 2020-08-27)
PROC: 0DB98ZX Excision of Duodenum, Via Natural or Artificial Opening Endoscopic, Diagnostic (ICD-10-PCS; 2020-08-27)
PROC: 07BD3ZX Excision of Aortic Lymphatic, Percutaneous Approach, Diagnostic (ICD-10-PCS; 2020-09-01)
PROC: 0W993ZZ Drainage of Right Pleural Cavity, Percutaneous Approach (ICD-10-PCS; 2020-09-03)
PROC: 0W9G3ZZ Drainage of Peritoneal Cavity, Percutaneous Approach (ICD-10-PCS; 2020-09-03)
PROC: 0JH63WZ Insertion of Totally Implantable Vascular Access Device into Chest Subcutaneous Tissue and Fascia, Percutaneous Approach (ICD-10-PCS; 2020-09-08)
PROC: 05H633Z Insertion of Infusion Device into Left Subclavian Vein, Percutaneous Approach (ICD-10-PCS; 2020-09-08)
DX: A41.9 Sepsis, unspecified organism (principal); E43 Unspecified severe protein-calorie malnutrition; R57.8 Other shock; I50.23 Acute on chronic systolic (congestive) heart failure; K22.11 Ulcer of esophagus with bleeding; N17.9 Acute kidney failure, unspecified; D68.9 Coagulation defect, unspecified; K31.1 Adult hypertrophic pyloric stenosis; I13.0 Hypertensive heart and chronic kidney disease with heart failure and stage 1 through stage 4 chronic kidney disease, or unspecified chronic kidney disease; J91.8 Pleural effusion in other conditions classified elsewhere; D62 Acute posthemorrhagic anemia; C82.13 Follicular lymphoma grade II, intra-abdominal lymph nodes; Z20.822 Contact with and (suspected) exposure to COVID-19; I48.0 Paroxysmal atrial fibrillation; E11.22 Type 2 diabetes mellitus with diabetic chronic kidney disease; K44.9 Diaphragmatic hernia without obstruction or gangrene; K80.20 Calculus of gallbladder without cholecystitis without obstruction; K82.8 Other specified diseases of gallbladder; N18.30 Chronic kidney disease, stage 3 unspecified; N28.1 Cyst of kidney, acquired; R29.6 Repeated falls; Z80.49 Family history of malignant neoplasm of other genital organs; Z86.73 Personal history of transient ischemic attack (TIA), and cerebral infarction without residual deficits; Z79.899 Other long term (current) drug therapy; Z68.24 Body mass index [BMI] 24.0-24.9, adult; W18.39XA Other fall on same level, initial encounter; Y93.89 Activity, other specified; Y92.89 Other specified places as the place of occurrence of the external cause; Y99.8 Other external cause status
CPT/HCPCS: 10022; 36415; 36556; 71045; 74150; 74176; 76604; 76942; 77012; 80048; 80053; 81001; 82040; 82378; 82962; 83036; 83605; 83615; 83735; 83880; 83986; 84100; 84443; 84478; 84484; 85014; 85018; 85025; 85049; 85379; 85610; 85730; 86301; 86706; 86803; 86850; 86900; 86901; 86920; 87040; 87081; 87205; 87340; 87426; 89051; 92610; 93005; 93306; 93970; 94640; 96365; 96367; 97110; 97163; 97530; 99291; C9113; G0378; J0690; J0696; J1100; J1200; J1642; J1815; J2250; J2405; J2704; J3430; J3480; J7060; J9034